=== PATIENT | female | born 2000 | race Two or more races ===

== ENCOUNTER 2022-11-12 12:52 | Emergency (ER) | payer MEDICAID ==
[~2022-11-12] VITALS: Ht 165.1 cm; Wt 61.0 kg
[2022-11-12] MEDS ORDERED: IBUPROFEN 600 MG TABLET PO ONE (14:15)
[2022-11-12] MEDS ORDERED: IBUP-1492 PO (15:11)
[2022-11-12 15:19] VITALS: BP 112/60
== END 2022-11-12 15:18 | disposition home or self-care (01) ==
LOC: EMS 12:59
DX: S40.021A Contusion of right upper arm, initial encounter (principal); F17.210 Nicotine dependence, cigarettes, uncomplicated; W10.8XXA Fall (on) (from) other stairs and steps, initial encounter; Y93.89 Activity, other specified; Y92.89 Other specified places as the place of occurrence of the external cause; Y99.8 Other external cause status
CPT/HCPCS: 29105; 99283